=== PATIENT | female | born 1985 | race Caucasian/White ===

== ENCOUNTER 2019-11-20 10:00 | Inpatient (IN) | payer OTHER ==
[~2019-11-20] VITALS: Ht 165.1 cm; Wt 78.0 kg
[2019-12-05] MEDS ORDERED: PRENATAL TABLE1 EAC1 PO (05:47)
== END 2019-12-08 13:15 | DRG 788 ==
LOC: SURG-SUITE 12-05 05:34 → LDR 12-05 05:34 → OB/GYN 12-05 10:00 → O/R 12-05 19:17 → SURG-SUITE 12-05 20:29
PROVIDERS: ADMIT Obstetrics & Gynecology; ATTEND Obstetrics & Gynecology
PROC: 4A1HXCZ Monitoring of Products of Conception, Cardiac Rate, External Approach (ICD-10-PCS; 2019-12-05)
PROC: 10D00Z1 Extraction of Products of Conception, Low, Open Approach (ICD-10-PCS; principal; 2019-12-05 16:00)
DX: O33.8 Maternal care for disproportion of other origin (principal); O82 Encounter for cesarean delivery without indication; Z3A.40 40 weeks gestation of pregnancy; Z37.0 Single live birth; Z22.330 Carrier of Group B streptococcus

== ENCOUNTER 2019-11-27 14:26 | Outpatient (CLI) | payer OTHER | END 2019-11-27 15:40 | disposition home or self-care (01) | LOC: NST 14:26 | PROVIDERS: ATTEND Obstetrics & Gynecology | DX: Z34.83 Encounter for supervision of other normal pregnancy, third trimester (principal) ==

== ENCOUNTER 2019-11-28 08:40 | Outpatient (CLI) | payer OTHER | END 2019-11-28 09:42 | disposition home or self-care (01) | LOC: NST 08:40 | PROVIDERS: ATTEND Obstetrics & Gynecology Maternal & Fetal Medicine | DX: Z34.83 Encounter for supervision of other normal pregnancy, third trimester (principal) ==

== ENCOUNTER 2019-11-30 22:45 | Outpatient (CLI) | payer OTHER | END 2019-11-30 23:28 | disposition left against medical advice (07) | LOC: OBS/DEL 22:45 | PROVIDERS: ATTEND Obstetrics & Gynecology Maternal & Fetal Medicine | DX: O47.1 False labor at or after 37 completed weeks of gestation (principal) ==

== ENCOUNTER 2019-12-04 11:13 | Outpatient (CLI) | payer OTHER ==
[2019-12-05] MEDS ORDERED: PRENATAL TABLE1 EAC1 PO (05:47)
== END 2019-12-04 12:10 | disposition home or self-care (01) ==
LOC: NST 11:13
PROVIDERS: ATTEND Obstetrics & Gynecology
DX: Z34.83 Encounter for supervision of other normal pregnancy, third trimester (principal)

== ENCOUNTER 2021-01-30 12:57 | Day surgery (SDC) | payer OTHER ==
[~2021-01-30 12:57] MED LIST: PRENATAL TABLE1 EAC1 PO
== END 2021-01-30 17:30 | disposition home or self-care (01) ==
LOC: CIR.AMB 12:57
PROVIDERS: ATTEND Obstetrics & Gynecology
DX: O02.1 Missed abortion (principal); Z20.822 Contact with and (suspected) exposure to COVID-19

== ENCOUNTER 2021-02-02 15:24 | Emergency (ER) | payer OTHER ==
[~2021-02-02] VITALS: Ht 167.6 cm; Wt 63.5 kg
== END 2021-02-02 18:37 | disposition home or self-care (01) ==
LOC: ER 15:24
DX: R53.1 Weakness (principal); R42 Dizziness and giddiness; Z20.822 Contact with and (suspected) exposure to COVID-19

== ENCOUNTER 2022-02-22 14:21 | Inpatient (IN) | payer OTHER ==
[~2022-02-22] VITALS: Ht 165.1 cm; Wt 3.6 kg
[2022-02-22] MEDS ORDERED: PRENATABS RX T1 EACH PO (14:39)
== END 2022-03-15 09:59 | disposition home or self-care (01) | DRG 788 ==
LOC: OB/GYN → O/R 03-12 12:00 → OB/GYN 03-12 13:48
PROVIDERS: ADMIT Obstetrics & Gynecology; ATTEND Obstetrics & Gynecology
PROC: 4A1HXCZ Monitoring of Products of Conception, Cardiac Rate, External Approach (ICD-10-PCS; 2022-03-12)
PROC: 10D00Z1 Extraction of Products of Conception, Low, Open Approach (ICD-10-PCS; principal; 2022-03-12 07:00)
DX: O34.211 Maternal care for low transverse scar from previous cesarean delivery (principal); Z3A.39 39 weeks gestation of pregnancy; Z37.0 Single live birth; Z20.822 Contact with and (suspected) exposure to COVID-19

== ENCOUNTER 2022-03-02 14:15 | Outpatient (CLI) | payer OTHER ==
[~2022-03-02 14:15] MED LIST changes: +PRENATABS RX T1 EACH PO
== END 2022-03-02 16:10 | disposition home or self-care (01) ==
LOC: NST 14:15
PROVIDERS: ATTEND Obstetrics & Gynecology
DX: Z34.83 Encounter for supervision of other normal pregnancy, third trimester (principal)

== ENCOUNTER 2024-05-25 09:41 | Outpatient (CLI) | payer OTHER | END 2024-05-25 09:42 | disposition home or self-care (01) | LOC: MAMO-SONO 09:41 | PROVIDERS: ATTEND Obstetrics & Gynecology | DX: N60.11 Diffuse cystic mastopathy of right breast (principal) ==